=== PATIENT | female | born 1995 | race Caucasian/White ===

== ENCOUNTER 2018-09-15 12:18 | Emergency (ER) | payer OTHER ==
[~2018-09-15] VITALS: Ht 160 cm; Wt 63.2 kg
[2018-09-15 12:24] VITALS: BP 127/75; PULSE 72; RESP 20; Ht 160 cm; Wt 63.2 kg
[2018-09-15] MEDS ORDERED: NITR-58 PO (14:10)
[2018-09-15] MEDS ORDERED: LIDOCAINE 1% (MPF) 5 ML VIAL INJ ONE (14:30)
[2018-09-15] MEDS ORDERED: AZITHROMYCIN 250 MG TAB PO ONE (14:30)
[2018-09-15] MEDS ORDERED: CEFTRIAXONE 250 MG INJ IM ONE (14:30)
--- NOTE | 2018-09-15 15:17 | ERD ---
ER Documentation Chief Complaint Chief Complaint c/o difficulty urinating(dribling) x6 months. Denies fever and hematuria HPI 22-year-old female presenting with dysuria. She states that she sporadically has burning with urination and has noticed some white discharge within the urine. She denies any fevers. Occasionally has back pain. Is sexually active and never had STD testing in the past. No fevers. Denies any other medical problems. NKDA. Surgical history denies. Social history denies ROS All systems reviewed and are negative except as per history of present illness. Medications Home Meds Active Scripts Nitrofurantoin Monohyd Macrocr* (Macrobid*) 100 Mg Capsr, 100 MG PO BID, #14 CAP Prov:NORMA CONWAY PA-C 09/15/18 PMhx/Soc Medical and Surgical Hx: pt denies Medical Hx, pt denies Surgical Hx FmHx Family History: No diabetes, No coronary disease, No other Physical Exam Vitals Vital Signs Date Temp Pulse Resp B/P (MAP) Pulse Ox O2 O2 Flow FiO2 Time Delivery Rate 09/15/18 98.5 72 20 127/75 98 12:24 (92) Physical Exam GENERAL: The patient is well-appearing, well-nourished, in no acute distress HEENT: Atraumatic. Conjunctivae are pink. Pupils equal, round, and reactive to light. There is no scleral icterus. Tympanic membranes clear bilaterally. Oropharynx clear. CHEST: Clear to auscultation bilaterally. There are no rales, wheezes or rhonchi. HEART: Regular rate and rhythm. No murmurs, clicks, rubs or gallops. ABDOMEN:Soft, nontender and nondistended. Good bowel sounds. No rebound or g uarding. No gross peritonitis. No gross organomegaly or masses. No Pittman sign or McBurney point tenderness. BACK: No midline or flank tenderness. Results 24 hrs Laboratory Tests Test 09/15/18 13:19 Urine Color STRAW Urine Clarity SLIGHTLY CLOUDY Urine pH 6.0 Urine Specific [place] 1.003 Urine Ketones NEGATIVE mg/dL Urine Nitrite NEGATIVE mg/dL Urine Bilirubin NEGATIVE mg/dL Urine Urobilinogen NEGATIVE mg/dL Urine Leukocyte Esterase TRACE Adria/ul Urine Microscopic RBC 2 /HPF Urine Microscopic WBC 14 /HPF Urine Squamous Epithelial Cells MANY /HPF Urine Bacteria MODERATE /HPF Urine Hemoglobin 2+ mg/dL Urine Glucose NEGATIVE mg/dL Urine Total Protein NEGATIVE mg/dl Current Medications Medications Dose Sig/Juvencio Start Time Status Last (Trade) Ordered Route PRN Stop Time Admin Dose Reason Admin Ceftriaxone 250 mg ONCE ONCE 09/15/18 DC 09/15/18 Sodium IM 14:30 14:28 (Rocephin) 09/15/18 14:31 Lidocaine 5 ml ONCE ONCE 09/15/18 DC 09/15/18 (Xylocaine INJ 14:30 14:28 1% (Mpf)) 09/15/18 14:31 1,000 mg ONCE ONCE 09/15/18 DC 09/15/18 Azithromycin PO 14:30 14:28 (Zithromax) 09/15/18 14:31 Procedures/MDM ER course: Urine collected and sent for gonorrhea and Chlamydia testing. Azithromycin and Rocephin injection given the ED. MDM: 22-year-old female presenting with dysuria. Patient will be treated for possible STD as she does have a sexually active partner and never been tested before. Patient's urine does not show clear urinary tract infection. Patient will be treated with antibiotics as it is slightly dirty. Patient does not have signs of pelvic abnormalities I do not feel there is indication for blood work or imaging. Patient is discharged with strict ER precautions and told to follow-up with primary care within 1-2 days for close evaluation. All questions answered at discharge Departure Diagnosis: Primary Impression: Dysuria Condition: Stable Patient Instructions: Dysuria Referrals: [facility] YOU HAVE RECEIVED A MEDICAL SCREENING EXAM AND THE RESULTS INDICATE THAT YOU DO NOT HAVE A CONDITION THAT REQUIRES URGENT TREATMENT IN THE EMERGENCY DEPARTMENT. FURTHER EVALUATION AND TREATMENT OF YOUR CONDITION CAN WAIT UNTIL YOU ARE SEEN IN YOUR DOCTORS OFFICE WITHIN THE NEXT 1-2 DAYS. IT IS YOUR RESPONSIBILITY TO MAKE AN APPOINTMENT FOR FOLOW-UP CARE. IF YOU HAVE A PRIMARY DOCTOR --you should call your primary doctor and schedule an appointment IF YOU DO NOT HAVE A PRIMARY DOCTOR YOU CAN CALL OUR PHYSICIAN REFERRAL HOTLINE AT IF YOU CAN NOT AFFORD TO SEE A PHYSICIAN YOU CAN CHOSE FROM THE FOLLOWING [facility] [address] [facility]. [facility] [address] [facility] [facility] [address] [facility] [address] [facility] [address] [facility] [facility] [address] Additional Instructions: FOLLOW UP WITH YOUR PRIMARY CARE PHYSICIAN TOMORROW.Return to this facility if you are not improving as expected. NORMA CONWAY PA-C Sep 15, 2018 15:17
== END 2018-09-15 14:59 | disposition home or self-care (01) ==
LOC: FTE 12:18
DX: R30.0 Dysuria (principal)
CPT/HCPCS: 81001; 87591; 96372; J0696; Z7502; Z7610

== ENCOUNTER 2019-01-01 09:44 | Emergency (ER) | payer OTHER ==
[~2019-01-01] VITALS: Ht 157.5 cm; Wt 66.7 kg
[~2019-01-01 09:44] MED LIST: NITR-58 PO
[2019-01-01 09:48] VITALS: BP 119/74; PULSE 92; RESP 20; Ht 157.5 cm; Wt 66.7 kg
[2019-01-01] MEDS ORDERED: IBUP-1542 PO (10:09)
[2019-01-01] MEDS ORDERED: AMOX500C2 PO (10:09)
--- NOTE | 2019-01-01 11:10 | ERD ---
ER Documentation Chief Complaint Chief Complaint Complains of a sorethroat x 3 days HPI 23-year-old female patient with no significant past medical history presents the ED complaining of sore throat that started 3 days ago. States that she can swallow liquids and solids without any difficulty. Reports that she feels like she is clearing her throat by coughing. States that she is tried taking equate [id number] cough medication as well as Jarabe De Ryan. Denies any fever, chills, nausea, vomiting, diarrhea, neck stiffness. ROS All systems reviewed and are negative except as per history of present illness. Medications Home Meds Active Scripts Ibuprofen* (Motrin*) 600 Mg Tab, 600 MG PO Q6, #30 TAB Prov:JOSE GRANGER PA-C 01/01/19 Amoxicillin* (Amoxicillin*) 500 Mg Cap, 500 MG PO BID for 10 Days, CAP Prov:JOSE GRANGER PA-C 01/01/19 Nitrofurantoin Monohyd Macrocr* (Macrobid*) 100 Mg Capsr, 100 MG PO BID, #14 CAP Prov:NORMA CONWAY PA-C 09/15/18 Allergies Allergies: Coded Allergies: No Known Allergy (Unverified , 01/01/19) PMhx/Soc Medical and Surgical Hx: pt denies Medical Hx, pt denies Surgical Hx Hx Alcohol Use: No Hx Substance Use: No Hx Tobacco Use: No Smoking Status: Never smoker FmHx Family History: No diabetes, No coronary disease Physical Exam Vitals Vital Signs Date Temp Pulse Resp B/P (MAP) Pulse Ox O2 O2 Flow FiO2 Time Delivery Rate 01/01/19 97.2 92 20 119/74 98 09:48 (89) Physical Exam Const: [id number], well-nourished. In no acute distress. Head: Atraumatic, normocephalic Eyes: Normal Conjunctiva without injection. No purulent discharge. PERRL. EOMI ENT: Normal external ear. Ear canal without erythema. Tympanic membrane pearly cardoso without effusion or bulging. Nasal canal clear with normal turbinates. Moist oropharynx with bilateral erythematous tonsillar exudates. Uvula midline. No drooling. No trismus. Neck: Full range of motion. No meningismus. No cervical lymphadenopathy. Resp: Clear to auscultation bilaterally. No wheezing, rhonchi, rales, or crackles. No accessory muscle use. No retractions. Cardio: Regular rate and rhythm. No murmurs, rubs or gallops. Abd: Soft, non tender, non distended. Normal bowel sounds. No palpable masses. No rebound tenderness. No guarding. Skin: No petechiae or rashes Back: No midline tenderness. No CVA tenderness. Ext: No cyanosis, or edema. Neur: Awake and alert. Psych: Normal Mood and Affect Procedures/MDM 23-year-old female patient with no significant past medical history presents to ED complaining of sore throat that started 3 days ago. Patient is afebrile and nontoxic-appearing. Patient exam is consistent with acute bacterial pharyngitis. Patient's physical exam is consistent with presumed strep pharyngitis. Patient is appropriate for outpatient antibiotics. Patient's physical exam include lungs which were clear to auscultation and a normal pulse oximetry. Bilateral ears pearly prasad. No tenderness to palpation of tragus or mastoid. Low suspicion for mastoiditis, otitis externa, otitis media. Patient is speaking in full sentences. There is a low suspicion for pneumonia, epiglottitis, croup, sinusitis, peritonsillar abscess, hands foot mouth disease, scarlet fever, Kawasaki disease, Kojo's angina, retropharyngeal abscess, meningitis, sepsis, acute abdomen or other emergent conditions. Diagnosis: Sore Throat Discharge medications: Ibuprofen, Amoxicillin Instructed parent to bring patient to follow up with soda room operator in 1-2 days. Instructed parent to bring patient back to the ED sooner for any worsening symptoms. Parent's questions were answered. Parent understood and agreed with discharge plan. Patient discharged stable. Disclaimer: Inadvertent spelling and grammatical errors are likely due to EHR/dictation software use and do not reflect on the overall quality of patient care. Also, please note that the electronic time recorded on this note does not necessarily reflect the actual time of the patient encounter. Departure Diagnosis: Primary Impression: Sore throat Condition: Stable Patient Instructions: Pharyngitis, Strep (Presumed) Referrals: COMM[facility] YOU HAVE RECEIVED A MEDICAL SCREENING EXAM AND THE RESULTS INDICATE THAT YOU DO NOT HAVE A CONDITION THAT REQUIRES URGENT TREATMENT IN THE EMERGENCY DEPARTMENT. FURTHER EVALUATION AND TREATMENT OF YOUR CONDITION CAN WAIT UNTIL YOU ARE SEEN IN YOUR DOCTORS OFFICE WITHIN THE NEXT 1-2 DAYS. IT IS YOUR RESPONSIBILITY TO MAKE AN APPOINTMENT FOR FOLOW-UP CARE. IF YOU HAVE A PRIMARY DOCTOR --you should call your primary doctor and schedule an appointment IF YOU DO NOT HAVE A PRIMARY DOCTOR YOU CAN CALL OUR PHYSICIAN REFERRAL HOTLINE AT IF YOU CAN NOT AFFORD TO SEE A PHYSICIAN YOU CAN CHOSE FROM THE FOLLOWING [facility] [address] [facility] [address] [facility] [address] [facility] [address] [facility] [address] [facility] [facility] [address] [facility]. [facility] YOU HAVE RECEIVED A MEDICAL SCREENING EXAM AND THE RESULTS INDICATE THAT YOU DO NOT HAVE A CONDITION THAT REQUIRES URGENT TREATMENT IN THE EMERGENCY DEPARTMENT. FURTHER EVALUATION AND TREATMENT OF YOUR CONDITION CAN WAIT UNTIL YOU ARE SEEN IN YOUR DOCTORS OFFICE WITHIN THE NEXT 1-2 DAYS. IT IS YOUR RESPONSIBILITY TO MAKE AN APPOINTMENT FOR FOLOW-UP CARE. IF YOU HAVE A PRIMARY DOCTOR --you should call your primary doctor and schedule and appointment IF YOU DO NOT HAVE A PRIMARY DOCTOR YOU CAN CALL OUR PHYSICIAN REFERRAL HOTLINE AT . IF YOU CAN NOT AFFORD TO SEE A PHYSICIAN YOU CAN CHOSE FROM THE FOLLOWING [facility]: [facility] [address] [place] [address] [facility] [address] [place] [address] [facility] [address] [place] [address] [facility] URGENT CARE/SPECIALTIES Additional Instructions: Call your primary care doctor TOMORROW for an appointment during the next 2-3 days.See the doctor sooner or return here if your condition worsens before your appointment time. JOSE GRANGER PA-C January 01, 2019 11:10
== END 2019-01-01 10:17 | disposition home or self-care (01) ==
LOC: FTE 09:44
DX: J02.9 Acute pharyngitis, unspecified (principal)
CPT/HCPCS: 99283